=== PATIENT | female | born 1990 | race Caucasian/White ===

== ENCOUNTER 2016-06-15 18:38 | Emergency (ER) | payer OTHER ==
--- NOTE | 2016-06-15 20:57 | ED CLINICAL REPORT ---
Clinical Report - Physicians/Mid Levels [facility] [address] [place] [address] 06/15/2016 18:40 Patient: LISSY LANE Time Seen: 18:45 Apr 2016. Arrived- By private vehicle. HISTORY OF PRESENT ILLNESS Chief Complaint: PELVIC PAIN. Still present. The symptoms are described as mild. The patient has had pelvic pain. No pain with urination, urinary frequency or urgency of urination. (7 weeks IUP G with history of anemia and previous transfusions, reports anemia with labs 2 weeks previously. Reports she has been feeling off and weak over the last few weeks. This has been worsening. History of gastric ulcers, status post gastric [id number]. Denies any melena, has had normal brown stool. Denies hematochezia. Reports some epigastric pain. Reports some shortness of breath with ambulating.). REVIEW OF SYSTEMS No nausea, vomiting, diarrhea, eye discomfort or cough. No chest pain. All systems otherwise negative, except as recorded above. SOCIAL HISTORY Never smoker. No alcohol use or drug use. ADDITIONAL NOTES The nursing notes have been reviewed. PHYSICAL EXAM Vital Signs: 06/15/2016 18:47 BP: 111/76. HR: 77. RR: 18. O2 saturation: 100%. Temp: 98.9 F. Appearance: Alert. No acute distress. (pale). HEENT: Normal external inspection. ENT: Pharynx normal. Neck: Neck supple. CVS: Heart sounds normal. Rate normal. Respiratory: No respiratory distress. Breath sounds normal. Abdomen: Soft and nontender. No mass. No abdominal tenderness. Neuro: Oriented X 3. LABS, X-RAYS, AND EKG EKG: EKG time: (2016). No acute process. No acute ischemia. Normal EKG. Rate: 68. Normal P waves. Normal LISSETT. Normal QRS complex. Normal axis. Prior EKG unavailable. The study has been interpreted contemporaneously. The study has been independently viewed by me. The EKG appears to be a good tracing. Laboratory Tests: CBC w Diff: (GINA: 06/15/2016 19:20) ( MsgRcvd 06/15/2016 19:52) Final results Test Result Flag Units (Reference) WHITE BLOOD COUNT 4.0 L K/uL (4.5-11.5) RED BLOOD COUNT 4.71 M/uL (4.00-5.20) HEMOGLOBIN 10.6 L gm/dL (12.0-16.0) HEMATOCRIT 33.1 L % (36.0-46.0) MEAN CELL VOLUME 70 L fL (80-100) MEAN CORPUSCULAR HGB 23 L pg (26-34) MEAN CORPUSCULAR HGB CONC 32 g/dL (31-37) RED CELL DISTRIBUTION WIDTH 18.5 H % (11.6-14.8) PLATELET COUNT 181 K/uL (150-400) NEUTROPHIL % 36.1 L % (50-75) LYMPH % 41.6 H % (25-40) MONO % 12.8 % (3-14) EOSINOPHIL % 8.9 H % (0-4) BASOPHIL % 0.6 % (0-2) CMP: (GINA: 06/15/2016 19:20) ( MsgRcvd 06/15/2016 20:29) Final results Test Result Flag Units (Reference) GLUCOSE 90 mg/dL (70-110) BUN 9 mg/dL (7-18) CREATININE 0.6 mg/dL (0.6-1.3) Estimated GFR >60 mL/min Estimated GFR- >60 mL/min Note: Persistent reduction over 3 months in eGFR<60 mL/min/1.73 m2 defines CKD. Patients with eGFR values>=60 mL/min/1.73 m2 may also have CKD if evidence ofpersistent proteinuria. Additional information may be foundat www.kidney.org. SODIUM 137 mmol/L (136-145) POTASSIUM 3.5 mmol/L (3.5-5.1) CHLORIDE 106 mmol/L (98-107) CARBON DIOXIDE 24 mmol/L (21-32) CALCIUM 8.1 L mg/dL (8.5-10.1) TOTAL PROTEIN 6.6 g/dL (6.4-8.2) ALBUMIN 3.1 L g/dL (3.3-5.0) BILIRUBIN, TOTAL 0.3 mg/dL (0.0-1.0) ALKALINE PHOSPHATASE 69 U/L (46-116) AST (SGOT) 20 U/L (15-37) ALT (SGPT) 25 U/L (12-78) BETA HCG, QUANTITATIVE 40999 mIU/mL REFERENCE RANGE:Adult Males: <2 mIU/mLNon- Females: <6 mIU/mL Females:Approximate Approximate hCGGestational Age Range (mIU/mL) 0-1 week 0-501-2 weeks 40-3002-3 weeks 100-36811-2 weeks 500-53119-0 months 5,000-200,0002-3 months 10,000-100,0002nd trimester 3,000-50,0003rd trimester 1,000-50,000 Type & Screen: (GINA: 06/15/2016 19:20) ( MsgRcvd 06/15/2016 20:25) IP Test Result Flag Units (Reference) PATIENT BLOOD TYPE B Positive . PROGRESS AND PROCEDURES Course of Care: Here in the ER patient has been stable. No signs of major anemia or requiring transfusion. Hemoccult negative from below, with light brown stool. No signs of active complications. Patient given 2 L IV fluid. [place] to be without any signs of orthostatic hypotension. Unclear source. EKG is benign. Patient feels better in the emergency department. HCG levels appropriate. NO vag bleeding, no loss of fluid. . 06/15/2016 20:48 BP: 96/63. HR: 74. O2 saturation: 100%. 06/15/2016 20:46 BP: 97/60. HR: 68. O2 saturation: 100%. 06/15/2016 20:44 BP: 97/51. HR: 58. O2 saturation: 100%. Patient is stable. Physical exam findings are improved. Symptoms better. Patient/family counseled. Differential Diagnosis: I considered cochlear disease, acoustic schwannoma, brainstem TIA, brainstem CVA, multiple sclerosis, drug-related cause of central vertigo, seizure, near-syncope, multiple sensory deficits, anxiety and psychosis as a possible cause of dizziness in this patient. Disposition: Discharged. Condition: good. CLINICAL IMPRESSION Near syncope Early, first trimester intrauterine . INSTRUCTIONS Drink plenty of fluids. (labs look great today, please follow up with your tin dipper). Warnings: Further evaluation is necessary. OTC Medications: Calcium Carbonate chewable tabs 500 mg (available over the counter): chew and swallow 1 tab every 6 hours. Dispense forty (40). No refill. (for Hypocalcemia (low Calcium levels)) Follow-up: Follow up with your doctor as needed. Understanding of the discharge instructions verbalized by patient. (Electronically signed by Sharmaine Qureshi P.A.-C 06/15/2016 21:08)
--- NOTE | 2016-06-15 20:57 | ED CLINICAL REPORT ---
Clinical Report - Physicians/Mid Levels [facility] [address] [place] [address] 06/15/2016 18:40 Patient: LISSY L[address] Time Seen: 18:45 Apr 2016. Arrived- By private vehicle. HISTORY OF PRESENT ILLNESS Chief Complaint: PELVIC PAIN. Still present. The symptoms are described as mild. The patient has had pelvic pain. No pain with urination, urinary frequency or urgency of urination. (7 weeks IUP G with history of anemia and previous transfusions, reports anemia with labs 2 weeks previously. Reports she has been feeling off and weak over the last few weeks. This has been worsening. History of gastric ulcers, status post gastric Sslt-dz-[id number]. Denies any melena, has had normal brown stool. Denies hematochezia. Reports some epigastric pain. Reports some shortness of breath with ambulating.). REVIEW OF SYSTEMS No nausea, vomiting, diarrhea, eye discomfort or cough. No chest pain. All systems otherwise negative, except as recorded above. SOCIAL HISTORY Never smoker. No alcohol use or drug use. ADDITIONAL NOTES The nursing notes have been reviewed. PHYSICAL EXAM Vital Signs: 06/15/2016 18:47 BP: 111/76. HR: 77. RR: 18. O2 saturation: 100%. Temp: 98.9 F. Appearance: Alert. No acute distress. (pale). HEENT: Normal external inspection. ENT: Pharynx normal. Neck: Neck supple. CVS: Heart sounds normal. Rate normal. Respiratory: No respiratory distress. Breath sounds normal. Abdomen: Soft and nontender. No mass. No abdominal tenderness. Neuro: Oriented X 3. LABS, X-RAYS, AND EKG EKG: EKG time: (2016). No acute process. No acute ischemia. Normal EKG. Rate: 68. Normal P waves. Normal LISSETT. Normal QRS complex. Normal axis. Prior EKG unavailable. The study has been interpreted contemporaneously. The study has been independently viewed by me. The EKG appears to be a good tracing. Laboratory Tests: CBC w Diff: (GINA: 06/15/2016 19:20) ( MsgRcvd 06/15/2016 19:52) Final results Test Result Flag Units (Reference) WHITE BLOOD COUNT 4.0 L K/uL (4.5-11.5) RED BLOOD COUNT 4.71 M/uL (4.00-5.20) HEMOGLOBIN 10.6 L gm/dL (12.0-16.0) HEMATOCRIT 33.1 L % (36.0-46.0) MEAN CELL VOLUME 70 L fL (80-100) MEAN CORPUSCULAR HGB 23 L pg (26-34) MEAN CORPUSCULAR HGB CONC 32 g/dL (31-37) RED CELL DISTRIBUTION WIDTH 18.5 H % (11.6-14.8) PLATELET COUNT 181 K/uL (150-400) NEUTROPHIL % 36.1 L % (50-75) LYMPH % 41.6 H % (25-40) MONO % 12.8 % (3-14) EOSINOPHIL % 8.9 H % (0-4) BASOPHIL % 0.6 % (0-2) CMP: (GINA: 06/15/2016 19:20) ( MsgRcvd 06/15/2016 20:29) Final results Test Result Flag Units (Reference) GLUCOSE 90 mg/dL (70-110) BUN 9 mg/dL (7-18) CREATININE 0.6 mg/dL (0.6-1.3) Estimated GFR >60 mL/min Estimated GFR- >60 mL/min Note: Persistent reduction over 3 months in eGFR<60 mL/min/1.73 m2 defines CKD. Patients with eGFR values>=60 mL/min/1.73 m2 may also have CKD if evidence ofpersistent proteinuria. Additional information may be foundat www.[email or web address].org. SODIUM 137 mmol/L (136-145) POTASSIUM 3.5 mmol/L (3.5-5.1) CHLORIDE 106 mmol/L (98-107) CARBON DIOXIDE 24 mmol/L (21-32) CALCIUM 8.1 L mg/dL (8.5-10.1) TOTAL PROTEIN 6.6 g/dL (6.4-8.2) ALBUMIN 3.1 L g/dL (3.3-5.0) BILIRUBIN, TOTAL 0.3 mg/dL (0.0-1.0) ALKALINE PHOSPHATASE 69 U/L (46-116) AST (SGOT) 20 U/L (15-37) ALT (SGPT) 25 U/L (12-78) BETA HCG, QUANTITATIVE 89120 mIU/mL REFERENCE RANGE:Adult Males: <2 mIU/mLNon- Females: <6 mIU/mL Females:Approximate Approximate hCGGestational Age Range (mIU/mL) 0-1 week 0-501-2 weeks 40-3002-3 weeks 100-83944-8 weeks 500-46758-8 months 5,000-200,0002-3 months 10,000-100,0002nd trimester 3,000-50,0003rd trimester 1,000-50,000 Type & Screen: (GINA: 06/15/2016 19:20) ( MsgRcvd 06/15/2016 20:25) IP Test Result Flag Units (Reference) PATIENT BLOOD TYPE B Positive . PROGRESS AND PROCEDURES Course of Care: Here in the ER patient has been stable. No signs of major anemia or requiring transfusion. Hemoccult negative from below, with light brown stool. No signs of active complications. Patient given 2 L IV fluid. [place] to be without any signs of orthostatic hypotension. Unclear source. EKG is benign. Patient feels better in the emergency department. HCG levels appropriate. NO vag bleeding, no loss of fluid. . 06/15/2016 20:48 BP: 96/63. HR: 74. O2 saturation: 100%. 06/15/2016 20:46 BP: 97/60. HR: 68. O2 saturation: 100%. 06/15/2016 20:44 BP: 97/51. HR: 58. O2 saturation: 100%. Patient is stable. Physical exam findings are improved. Symptoms better. Patient/family counseled. Differential Diagnosis: I considered cochlear disease, acoustic schwannoma, brainstem TIA, brainstem CVA, multiple sclerosis, drug-related cause of central vertigo, seizure, near-syncope, multiple sensory deficits, anxiety and psychosis as a possible cause of dizziness in this patient. Disposition: Discharged. Condition: good. CLINICAL IMPRESSION Near syncope Early, first trimester intrauterine . INSTRUCTIONS Drink plenty of fluids. (labs look great today, please follow up with your graphotype operator). Warnings: Further evaluation is necessary. OTC Medications: Calcium Carbonate chewable tabs 500 mg (available over the counter): chew and swallow 1 tab every 6 hours. Dispense forty (40). No refill. (for Hypocalcemia (low Calcium levels)) Follow-up: Follow up with your doctor as needed. Understanding of the discharge instructions verbalized by patient. (Electronically signed by Sharmaine Qureshi P.A.-C 06/15/2016 21:08)
--- NOTE | 2016-06-15 20:58 | ED ORDER SUMMARY ---
..... Patient: LISSY LANE OrderSheet [facility] VisitID: [id number] [place] [address] 26y, F Registration Date/Time: 06/15/2016 ORDER SHEET Weight: 72.5 kg (stated) Allergies: Hydrocodone GENERAL ORDERS: CBC w Diff Urgent (18:57 06/15/2016 EKoroleva P.A.-C) (Ack 19:00 PWeiler ER Tech1) (19:31 EHassan R.N.) CMP Urgent (18:57 06/15/2016 EKoroleva P.A.-C) (Ack 19:00 PWeiler ER Tech1) (19:31 EHassan R.N.) Type & Screen Urgent (18:57 06/15/2016 EKoroleva P.A.-C) (Ack 19:00 PWeiler ER Tech1) (19:31 EHassan R.N.) Serum Quantitative Urgent (18:57 06/15/2016 EKoroleva P.A.-C) (Ack 19:00 PWeiler ER Tech1) (19:31 EHassan R.N.) Welder Fitter Arc (Continuous) (18:58 06/15/2016 EKoroleva P.A.-C) (19:31 EHassan R.N.) EKG - ER Stat (18:58 06/15/2016 EKoroleva P.A.-C) (Ack 19:00 PWeiler ER Tech1) (19:11 PWeiler ER Tech1) Vitals (20:35 06/15/2016 EKoroleva P.A.-C) (20:59 CHategekimana) MEDICATION ORDERS: IV FLUIDS: IV NS : initial bolus 1000 mL (1000 mL/hr), then 1000 mL/hr for X1 (NOW); Sergio (18:57 06/15/2016 EKoroleva P.A.-C) (19:33 EHassan R.N.) Reglan IV 10 mg (NOW) (18:58 06/15/2016 EKoroleva P.A.-C) (19:33 EHassan R.N.) ORDER SHEET NOTES: [Electronically signed by Sharmaine Qureshi P.A.-C (21:08 06/15/2016)] [Electronically signed by Dunia Loaiza R.N. (11:37 06/16/2016)] [Electronically locked/signed by Dunia Loaiza R.N. (11:37 06/16/2016)]
--- NOTE | 2016-06-15 20:58 | ED NURSING NOTES ---
Clinical Report - Nurses [place] [address] [place] [address] 06/15/2016 18:40 Patient: LISSY LANE TRIAGE Triage time 1850 PM. Acuity: LEVEL 3. Chief Complaint: DIZZINESS and FAINTING. Alert. No acute distress. BETO COMA SCORE: Beto Coma Scale: 15- eyes open spontaneously (4); best verbal response- oriented x 4 (5); best motor response- obeys commands (6). --19:00 Dunia Loaiza R.N. 18:47 06/15/16. BP: 111/76. HR: 77. RR: 18. O2 saturation: 100% on room air. Temp: 98.9 F (oral). --19:00 Dunai Loaiza R.N. 18:47 06/15/16. Pain level now: 0/10. --21:19 Dunia Loaiza R.N. Weight: 72.5 kg stated. Height/Length: 67 inches Per Patient. BMI: 25.1. --18:47 Dunia Loaiza R.N. Medications Plus Iron Oral. --18:52 Dunia Loaiza R.N. Magnesium Aspartate Oral. --18:52 Dunia Loaiza R.N. Sucralfate Oral. --18:53 Dunia Loaiza R.N. B Complete Oral. --18:53 Dunia Loaiza R.N. [place] 3 Oral. --18:53 Dunia Loaiza R.N. Vitamin D Oral. --18:53 Dunia Loaiza R.N. Multiple suplements. --18:53 Dunia Loaiza R.N. Allergies Hydrocodone. --18:51 Dunia Loaiza R.N. Medication/allergy information source: the patient. --19:00 Dunia Loaiza R.N. History Arrived by private vehicle, and accompanied by family. Primary physician (Duyen Méndez). ( Pt states being 7 weeks who is aware of being "extremely anemic as per manufacturing quality manager" has been feeling very dizziness, SOB, specially when I she stands. Denies any vaginal bleeding. Here for further evaluation). Onset. (3 days). She has had weakness and difficulty breathing. No fever, cough or skin rash. Denies muscle aches. Treatment CLERK SECRETARY: None. PAST MEDICAL HX: Immunizations not up to date. SOCIAL HX: Never smoker. History of drug use: marijuana. Recently used drugs days ago. (2). No alcohol use. No infectious disease exposure. ABUSE ASSESSMENT: No report of abuse. SELF HARM ASSESSMENT: A self harm assessment was performed. The patient answered "no" to the question "Do you have thoughts of harming or killing yourself?" and "Have you recently had thoughts about harming or killing others?". FALL RISK ASSESSMENT: Fall risk assessment completed. No fall risk identified. NUTRITIONAL RISK ASSESSMENT: The nutritional risk assessment revealed no deficiencies. FUNCTIONAL ASSESSMENT: Functional assessment: no impairments noted. LEARNING NEEDS ASSESSMENT: The learning needs assessment revealed no barriers. SKIN INTEGRITY ASSESSMENT: Skin integrity risk assessment completed. No skin integrity risk identified. --19:00 Dunia Loaiza R.N. 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 Ulcers. Asthma. Pancreatitis. --18:56 Dunia Loaiza R.N. Migranes. --18:59 Dunia Loaiza R.N. ADDITIONAL SURGERIES: Cholecystectomy. Gastric bypass. Tonsillectomy & Adenoidectomy. --18:56 Dunia Loaiza R.N. Interventions ID band on patient. --19:00 Dunia Loaiza R.N. PHYSICAL ASSESSMENT Ambulatory to room. GENERAL / NEURO / PSYCH: Alert. Oriented X 4. HEENT: Pupils equal, round and reactive to light. Mucous membranes are pink. RESPIRATORY: Respirations not labored. Chest nontender. Breath sounds within normal limits. CVS: Capillary refill less than 2 seconds. Pulses within normal limits. GI / : Abdomen soft and nontender and normal bowel sounds. SKIN: Skin intact. Skin is warm and dry. Normal skin turgor. --19:00 Dunia Loaiza R.N. NURSING PROGRESS NOTES The initial plan of care for this patient has been created This plan of care was discussed with the patient. Monitoring of patient in place. Patient gowned. Warming measures: blanket applied. Reassurance given. Two patient identifiers checked. Call light placed in reach. Side rails up x 1. Bed placed in lowest position. Brakes of bed on. Patient ready for evaluation- ED physician and PA notified. --19:00 Dunia Loaiza R.N. EKG time: (1909). EKG was ordered, performed by a patricia and shown to the PA. --19:11 Trent Bowling, EM Tech1 19:28 06/15/2016 Site #1 started via IV in the right antecubital space with an 20g angiocath. Blood drawn: rainbow set. Labeled in the presence of the patient and sent to the lab. --:33 Dunia Loaiza R.N. :06/15/2016 Started bag #1 999 mL IV Fluids IV NS (Saline); at 1000 mL/hr over 1 hour(s) via site #1 via dial-a-flow. Allergies verified and confirmed 5 rights. IV patency established. IV site checked: no pain, redness, or swelling. IV flushed thoroughly pre- and post-medication administration. --:33 Dunia Loaiza R.N. 19:33 06/15/2016 Reglan (Metoclopramide HCl) IVP 10 mg given over 2 minute(s) via site #1. Allergies verified and confirmed 5 rights. IV patency established. IV site checked: no pain, redness, or swelling. IV flushed thoroughly pre- and post-medication administration. IVP given by RN. --19:33 Dunia Loaiza R.N. Cardiac rhythm: normal sinus rhythm. quality assurance monitor final, pulse oximeter and NIBP monitor placed on patient. Reassurance given. Reassessment after fluids administered. She is calm and resting quietly. CVS: Normal sinus rhythm noted. SKIN: Skin is warm. Call light placed in reach. --19:44 Dunia Loaiza R.N. 19:30 06/15/16. BP: 98/59 (regular adult cuff) taken on the left arm, via an automated monitor, while lying. HR: 68. RR: 14. O2 saturation: 96%. Pain level now: 0/10. --19:44 Dunia Loaiza R.N. 20:29 06/15/2016 Reglan IVP Response: no adverse reaction. --20:39 Dunia Loaiza R.N. 20:44 06/15/16. BP: 97/51 (regular adult cuff) taken on the right arm, while lying. HR: 58. O2 saturation: 100% on room air. Additional comments: orthostatic . --20:46 Brittany Quevedo 20:46 06/15/16. BP: 97/60 (regular adult cuff) taken on the right arm, while sitting. HR: 68. O2 saturation: 100% on room air. --20:51 Brittany Quevedo 20:48 06/15/16. BP: 96/63 (regular adult cuff) taken on the right arm, while standing. HR: 74. O2 saturation: 100% on room air. Additional comments: orthostatics . --20:52 Brittany Quevedo. DISPOSITION / DISCHARGE 21:06/15/2016 IV Fluids IV NS Discontinued: bag #1 infused upon discharge. Total amount infused: 1000 mL. IV patency established. IV site checked: no pain, redness, or swelling. IV flushed thoroughly. --21:16 Dunia Loaiza R.N. 21:16 06/15/2016 Site #1 removed upon discharge. Catheter intact. Manual pressure, pressure dressing, bandaid and bandage applied. --21:16 Dunia Loaiza R.N. Cardiac rhythm: normal sinus rhythm. Departure time: 2118 PM. Condition at departure: improved and stable. The goals identified in the patient's plan of care were met. No learning barriers present. Discharge instructions provided and reviewed with the patient. Reviewed medication(s) side effects, precautions, dosing and course information. Prescription(s) given to the patient. Activity restrictions (rest) reviewed. Patient verbalized understanding. Written instructions provided in Wolof. No warning instructions. The patient was discharged by the physician recruitment and outreach assistant. She was discharged home and accompanied by spouse. She left the Emergency Department ambulatory and via private vehicle. Spouse driving. FALL RISK ASSESSMENT: Fall risk assessment completed. No fall risk identified. --21:18 Dunia Loaiza R.N. 21:00 06/15/16. BP: 96/55. HR: 68. RR: 14. O2 saturation: 100% on room air. Temp: 98.3 F (oral). Pain level now: 0/10. --21:18 Dunia Loaiza R.N. Locked/Released at 06/16/2016 11:37 by Dunia Loaiza R.N.
--- NOTE | 2016-06-15 20:58 | ED NURSING NOTES ---
Clinical Report - Nurses [place] [place] [address] [place] [address] 06/15/2016 18:40 Patient: [address]IS[address] L[address] TRIAGE Triage time 1850 PM. Acuity: LEVEL 3. Chief Complaint: DIZZINESS and FAINTING. Alert. No acute distress. BETO COMA SCORE: Beto Coma Scale: 15- eyes open spontaneously (4); best verbal response- oriented x 4 (5); best motor response- obeys commands (6). --19:00 Dunia Loaiza R.N. 18:47 06/15/16. BP: 111/76. HR: 77. RR: 18. O2 saturation: 100% on room air. Temp: 98.9 F (oral). --19:00 Dunia Loaiza R.N. 18:47 06/15/16. Pain level now: 0/10. --21:19 Dunia Loaiza R.N. Weight: 72.5 kg stated. Height/Length: 67 inches Per Patient. BMI: 25.1. --18:47 Dunia Loaiza R.N. Medications Plus Iron Oral. --18:52 Dunia Loaiza R.N. Magnesium Aspartate Oral. --18:52 Dunia Loaiza R.N. Sucralfate Oral. --18:53 Dunia Loaiza R.N. B Complete Oral. --18:53 Dunia Loaiza R.N. [place] 3 Oral. --18:53 Dunia Loaiza R.N. Vitamin D Oral. --18:53 Dunia Loaiza R.N. Multiple suplements. --18:53 Dunia Loaiza R.N. Allergies Hydrocodone. --18:51 Dunia Loaiza R.N. Medication/allergy information source: the patient. --19:00 Dunia Loaiza R.N. History Arrived by private vehicle, and accompanied by family. Primary physician (Duyen Méndez). ( Pt states being 7 weeks who is aware of being "extremely anemic as per photographic reproduction technician" has been feeling very dizziness, SOB, specially when I she stands. Denies any vaginal bleeding. Here for further evaluation). Onset. (3 days). She has had weakness and difficulty breathing. No fever, cough or skin rash. Denies muscle aches. 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 PAST MEDICAL HX: Immunizations not up to date. SOCIAL HX: Never smoker. History of drug use: marijuana. Recently used drugs days ago. (2). No alcohol use. No infectious disease exposure. ABUSE ASSESSMENT: No report of abuse. SELF HARM ASSESSMENT: A self harm assessment was performed. The patient answered "no" to the question "Do you have thoughts of harming or killing yourself?" and "Have you recently had thoughts about harming or killing others?". FALL RISK ASSESSMENT: Fall risk assessment completed. No fall risk identified. NUTRITIONAL RISK ASSESSMENT: The nutritional risk assessment revealed no deficiencies. FUNCTIONAL ASSESSMENT: Functional assessment: no impairments noted. LEARNING NEEDS ASSESSMENT: The learning needs assessment revealed no barriers. SKIN INTEGRITY ASSESSMENT: Skin integrity risk assessment completed. No skin integrity risk identified. --19:00 Dunia Loaiza R.N. 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 Ulcers. Asthma. Pancreatitis. --18:56 Dunia Loaiza R.N. Migranes. --18:59 Dunia Loaiza R.N. ADDITIONAL SURGERIES: Cholecystectomy. Gastric bypass. Tonsillectomy & Adenoidectomy. --18:56 Dunia Loaiza R.N. Interventions ID band on patient. --19:00 Dunia Loaiza R.N. PHYSICAL ASSESSMENT Ambulatory to room. GENERAL / NEURO / PSYCH: Alert. Oriented X 4. HEENT: Pupils equal, round and reactive to light. Mucous membranes are pink. RESPIRATORY: Respirations not labored. Chest nontender. Breath sounds within normal limits. CVS: Capillary refill less than 2 seconds. Pulses within normal limits. GI / : Abdomen soft and nontender and normal bowel sounds. SKIN: Skin intact. Skin is warm and dry. Normal skin turgor. --19:00 Dunia Loaiza R.N. NURSING PROGRESS NOTES The initial plan of care for this patient has been created This plan of care was discussed with the patient. Monitoring of patient in place. Patient gowned. Warming measures: blanket applied. Reassurance given. Two patient identifiers checked. Call light placed in reach. Side rails up x 1. Bed placed in lowest position. Brakes of bed on. Patient ready for evaluation- ED physician and PA notified. --19:00 Dunia Loaiza R.N. EKG time: (1909). EKG was ordered, performed by a patricia and shown to the PA. --19:11 Trent Bowling, EM Tech1 19:28 06/15/2016 Site #1 started via IV in the right antecubital space with an 20g angiocath. Blood drawn: rainbow set. Labeled in the presence of the patient and sent to the lab. --:33 Dunia Loaiza R.N. :06/15/2016 Started bag #1 999 mL IV Fluids IV NS (Saline); at 1000 mL/hr over 1 hour(s) via site #1 via dial-a-flow. Allergies verified and confirmed 5 rights. IV patency established. IV site checked: no pain, redness, or swelling. IV flushed thoroughly pre- and post-medication administration. --:33 Dunia Loaiza R.N. 19:33 06/15/2016 Reglan (Metoclopramide HCl) IVP 10 mg given over 2 minute(s) via site #1. Allergies verified and confirmed 5 rights. IV patency established. IV site checked: no pain, redness, or swelling. IV flushed thoroughly pre- and post-medication administration. IVP given by RN. --19:33 Dunia Loaiza R.N. Cardiac rhythm: normal sinus rhythm. fine arts chair, pulse oximeter and NIBP monitor placed on patient. Reassurance given. Reassessment after fluids administered. She is calm and resting quietly. CVS: Normal sinus rhythm noted. SKIN: Skin is warm. Call light placed in reach. --19:44 Dunia Loaiza R.N. 19:30 06/15/16. BP: 98/59 (regular adult cuff) taken on the left arm, via an automated monitor, while lying. HR: 68. RR: 14. O2 saturation: 96%. Pain level now: 0/10. --19:44 Dunia Loaiza R.N. 20:29 06/15/2016 Reglan IVP Response: no adverse reaction. --20:39 Dunia Loaiza R.N. 20:44 06/15/16. BP: 97/51 (regular adult cuff) taken on the right arm, while lying. HR: 58. O2 saturation: 100% on room air. Additional comments: orthostatic . --20:46 Brittany Quevedo 20:46 06/15/16. BP: 97/60 (regular adult cuff) taken on the right arm, while sitting. HR: 68. O2 saturation: 100% on room air. --20:51 Brittany Quevedo 20:48 06/15/16. BP: 96/63 (regular adult cuff) taken on the right arm, while standing. HR: 74. O2 saturation: 100% on room air. Additional comments: orthostatics . --20:52 Brittany Quevedo. DISPOSITION / DISCHARGE 21:06/15/2016 IV Fluids IV NS Discontinued: bag #1 infused upon discharge. Total amount infused: 1000 mL. IV patency established. IV site checked: no pain, redness, or swelling. IV flushed thoroughly. --21:16 Dunia Loaiza R.N. 21:16 06/15/2016 Site #1 removed upon discharge. Catheter intact. Manual pressure, pressure dressing, bandaid and bandage applied. --21:16 Dunia Loaiza R.N. Cardiac rhythm: normal sinus rhythm. Departure time: 2118 PM. Condition at departure: improved and stable. The goals identified in the patient's plan of care were met. No learning barriers present. Discharge instructions provided and reviewed with the patient. Reviewed medication(s) side effects, precautions, dosing and course information. Prescription(s) given to the patient. Activity restrictions (rest) reviewed. Patient verbalized understanding. Written instructions provided in Khmer. No warning instructions. The patient was discharged by the physician service assistant. She was discharged home and accompanied by spouse. She left the Emergency Department ambulatory and via private vehicle. Spouse driving. FALL RISK ASSESSMENT: Fall risk assessment completed. No fall risk identified. --21:18 Dunia Loaiza R.N. 21:00 06/15/16. BP: 96/55. HR: 68. RR: 14. O2 saturation: 100% on room air. Temp: 98.3 F (oral). Pain level now: 0/10. --21:18 Dunia Loaiza R.N. Locked/Released at 06/16/2016 11:37 by Dunia Loaiza R.N.
--- NOTE | 2016-06-15 20:58 | ED ORDER SUMMARY ---
..... Patient: [address]IS[address] L[address] OrderSheet [facility] VisitID: [id number] [place] [address] 26y, F Registration Date/Time: 06/15/2016 ORDER SHEET Weight: 72.5 kg (stated) Allergies: Hydrocodone GENERAL ORDERS: CBC w Diff Urgent (18:57 06/15/2016 EKoroleva P.A.-C) (Ack 19:00 PWeiler ER Tech1) (19:31 EHassan R.N.) CMP Urgent (18:57 06/15/2016 EKoroleva P.A.-C) (Ack 19:00 PWeiler ER Tech1) (19:31 EHassan R.N.) Type & Screen Urgent (18:57 06/15/2016 EKoroleva P.A.-C) (Ack 19:00 PWeiler ER Tech1) (19:31 EHassan R.N.) Serum Quantitative Urgent (18:57 06/15/2016 EKoroleva P.A.-C) (Ack 19:00 PWeiler ER Tech1) (19:31 EHassan R.N.) Roofing Contractor (Continuous) (18:58 06/15/2016 EKoroleva P.A.-C) (19:31 EHassan R.N.) EKG - ER Stat (18:58 06/15/2016 EKoroleva P.A.-C) (Ack 19:00 PWeiler ER Tech1) (19:11 PWeiler ER Tech1) Vitals (20:35 06/15/2016 EKoroleva P.A.-C) (20:59 CHategekimana) MEDICATION ORDERS: IV FLUIDS: IV NS : initial bolus 1000 mL (1000 mL/hr), then 1000 mL/hr for X1 (NOW); Sergio (18:57 06/15/2016 EKoroleva P.A.-C) (19:33 EHassan R.N.) Reglan IV 10 mg (NOW) (18:58 06/15/2016 EKoroleva P.A.-C) (19:33 EHassan R.N.) ORDER SHEET NOTES: [Electronically signed by Sharmaine Qureshi P.A.-C (21:08 06/15/2016)] [Electronically signed by Dunia Loaiza R.N. (11:37 06/16/2016)] [Electronically locked/signed by Dunia Loaiza R.N. (11:37 06/16/2016)]
--- NOTE | 2016-06-16 11:37 | ED DISCHARGE INSTRUCTIONS ---
Patient: [address]IS[address] General Instructions [facility] VisitID: [id number] [place] [address] 26y, F Registration Date/Time: 06/15/2016 Near syncope Early, first trimester intrauterine . INSTRUCTIONS Drink plenty of fluids. (labs look great today, please follow up with your rn women services). Warnings: Further evaluation is necessary. OTC Medications: Calcium Carbonate chewable tabs 500 mg (available over the counter): chew and swallow 1 tab every 6 hours. Dispense forty (40). No refill. (for Hypocalcemia (low Calcium levels)) Follow-up: Follow up with your doctor as needed. Understanding of the discharge instructions verbalized by patient. ADDITIONAL INFORMATION Near-Fainting:Uncertain Cause Fainting (syncope) is a temporary loss of consciousness ("passing out"). It occurs when blood flow to the brain is reduced. Near-fainting ("near-syncope") is like fainting, but you do not fully "pass out." The common minor causes of near fainting include sudden fear, pain, emotional stress, overexertion, or quickly standing up after sitting or lying for a long time. The more serious causes for near fainting are due to either a very slow or very fast heart beat, dehydration, anemia, blood loss, problems related to the heart, or taking too much high blood pressure medicine. The exact cause of your episode is not certain. More tests may be required. Therefore, it is important that you follow up with your doctor as advised. Home Care: 1) Rest today. Resume your normal activities as soon as you are feeling back to normal. 2) If you become light-headed or dizzy, lie down right away or sit with your head between your knees. 3) Because we do not know the exact cause of your near fainting spell, another spell could occur without warning. Therefore, do not drive a car or use dangerous equipment. D o not take a bath alone (use a shower instead). Do not swim alone. You can resume these activities when your doctor says that you are no longer in danger of having a near fainting spell. 4) Stay well hydrated by drinking enough fluid each day. Follow Up with your doctor as instructed. Get Prompt Medical Attention if any of the following occur: -- Another fainting spell occurs, and it is not explained by the common causes listed above -- Chest, arm, neck, jaw, back or abdominal pain -- Shortness of breath -- Weakness, tingling or numbness in one side of the face, one arm or leg -- Slurred speech, confusion, trouble walking or seeing -- Seizure -- Blood in vomit, stools (black or red color) -- (In women) unexpected vaginal bleeding Your exam today shows that you are . During , it is normal to develop tender swollen breasts, frequent urination and mild vaginal discharge. During the first three months, nausea is common. Guidelines For A Healthy : To ensure that your baby is born healthy there are certain things that you can do: When you feel tired, you should REST. This is especially true in the later months of . Your body needs more FLUIDS than you may be used to: You should drink 8-10 glasses of juice, milk or water. Eat well-balanced MEALS at regular intervals to supply your body with enough protein. You can expect a total weight gain of about 30 pounds during the . Do not try to diet or lose weight while you are . Because of the extra nutritional needs during , take one VITAMIN daily. Do not take any other MEDICINE during your (prescribed or [id number]) unless your doctor specifically recommends this. Many drugs can have harmful effects on the growing baby. If NAUSEA or VOMITING become a problem, avoid greasy and fried foods. Eat several smaller meals throughout the day rather than three large meals. If you SMOKE, you must stop. The nicotine you breathe in goes right to the baby. Stay away from ALCOHOL, even in moderate amounts. Daily drinking will harm your baby and can cause permanent brain damage. RECREATIONAL DRUGS are harmful, especially cocaine, crack, and heroin. Marijuana should also be avoided. If you were using recreational drugs or prescribed medicine when you found out that you were , talk to your doctor about possible effects on the fetus. Follow Up: Call to arrange for care. This can be provided by your family doctor, an outreach consultant ( specialist) or a primary care clinic. Get Prompt Medical Attention if any of the following occur: Vaginal bleeding Moderate or severe abdominal or back pain Excessive vomiting, unable to keep any fluids down for six hours Burning with urination Headache, dizziness or rapid weight gain Calcium Carbonate Oral tablet What is this medicine? CALCIUM CARBONATE (RUDI see um ANNA jerez ate) is a calcium salt. It is used as an antacid to relieve the symptoms of indigestion and heartburn. It is also used to prevent osteoporosis, as a calcium supplement, and to treat high phosphate levels in patients with kidney disease. How should I use this medicine? Take this medicine by mouth with a glass of water. Follow the directions on the label. Antacids are usually taken after meals and at bedtime, or as directed by your doctor or health vocational childcare teacher. Take your medicine at regular intervals. Do not take your medicine more often than directed. Talk to your physician assistant psychiatry regarding the use of this medicine in children. While this medicine may be used in children for selected conditions, precautions do apply. What side effects may I notice from receiving this medicine? Side effects that you should report to your doctor or health vocational childcare teacher as soon as possible: allergic reactions like skin rash, itching or hives, swelling of the face, lips, or tongue confusion or irritability headache loss of appetite nausea, vomiting unusually weak or tired Side effects that usually do not require medical attention (report to your doctor or health vocational childcare teacher if they continue or are bothersome): constipation stomach gas What may interact with this medicine? Do not take this medicine with any of the following medications: ammonium chloride methenamine This medicine may also interact with the following medications: antibiotics like ciprofloxacin, tetracycline captopril delavirdine gabapentin iron supplements medicines for fungal infections like ketoconazole and itraconazole medicines for seizures like ethotoin and phenytoin mycophenolate quinidine rosuvastatin sucralfate thyroid medicine What if I miss a dose? If you miss a dose, take it as soon as you can. If it is almost time for your next dose, take only that dose. Do not take double or extra doses. Where should I keep my medicine? Keep out of the reach of children. Store at room temperature between 15 and 30 degrees C (59 and 86 degrees F). Throw away any unused medicine after the expiration date. What should I tell my health care provider before I take this medicine? They need to know if you have any of these conditions: constipation dehydration high blood calcium levels kidney disease stomach bleeding, obstruction or ulcer an unusual or allergic reaction to calcium carbonate, other medicines, foods, dyes, or preservatives or trying to get breast-feeding What should I watch for while using this medicine? Tell your doctor or healthcare professional if your symptoms do not start to get better or if they get worse. Do not treat yourself for stomach problems with this medicine for more than 2 weeks. See a doctor if you have black tarry stools, rectal bleeding, or if you feel unusually tired. Do not change to another antacid product without advice. If you are taking other medicines, leave an interval of at least 2 hours before or after taking this medicine. To help reduce constipation, drink several glasses of water a day. You have been given the following additional information: Near Syncope, Unknown , New Dx Calcium Carbonate Oral tablet (Electronically signed by Sharmaine Qureshi P.A.-C 06/15/2016 21:08)
--- NOTE | 2016-06-16 11:37 | ED DISCHARGE INSTRUCTIONS ---
Patient: LISSY LANE General Instructions [facility] VisitID: [id number] [place] [address] 26y, F Registration Date/Time: 06/15/2016 Near syncope Early, first trimester intrauterine . INSTRUCTIONS Drink plenty of fluids. (labs look great today, please follow up with your senior safety support manager). Warnings: Further evaluation is necessary. OTC Medications: Calcium Carbonate chewable tabs 500 mg (available over the counter): chew and swallow 1 tab every 6 hours. Dispense forty (40). No refill. (for Hypocalcemia (low Calcium levels)) Follow-up: Follow up with your doctor as needed. Understanding of the discharge instructions verbalized by patient. ADDITIONAL INFORMATION Near-Fainting:Uncertain Cause Fainting (syncope) is a temporary loss of consciousness ("passing out"). It occurs when blood flow to the brain is reduced. Near-fainting ("near-syncope") is like fainting, but you do not fully "pass out." The common minor causes of near fainting include sudden fear, pain, emotional stress, overexertion, or quickly standing up after sitting or lying for a long time. The more serious causes for near fainting are due to either a very slow or very fast heart beat, dehydration, anemia, blood loss, problems related to the heart, or taking too much high blood pressure medicine. The exact cause of your episode is not certain. More tests may be required. Therefore, it is important that you follow up with your doctor as advised. Home Care: 1) Rest today. Resume your normal activities as soon as you are feeling back to normal. 2) If you become light-headed or dizzy, lie down right away or sit with your head between your knees. 3) Because we do not know the exact cause of your near fainting spell, another spell could occur without warning. Therefore, do not drive a car or use dangerous equipment. D o not take a bath alone (use a shower instead). Do not swim alone. You can resume these activities when your doctor says that you are no longer in danger of having a near fainting spell. 4) Stay well hydrated by drinking enough fluid each day. Follow Up with your doctor as instructed. Get Prompt Medical Attention if any of the following occur: -- Another fainting spell occurs, and it is not explained by the common causes listed above -- Chest, arm, neck, jaw, back or abdominal pain -- Shortness of breath -- Weakness, tingling or numbness in one side of the face, one arm or leg -- Slurred speech, confusion, trouble walking or seeing -- Seizure -- Blood in vomit, stools (black or red color) -- (In women) unexpected vaginal bleeding Your exam today shows that you are . During , it is normal to develop tender swollen breasts, frequent urination and mild vaginal discharge. During the first three months, nausea is common. Guidelines For A Healthy : To ensure that your baby is born healthy there are certain things that you can do: When you feel tired, you should REST. This is especially true in the later months of . Your body needs more FLUIDS than you may be used to: You should drink 8-10 glasses of juice, milk or water. Eat well-balanced MEALS at regular intervals to supply your body with enough protein. You can expect a total weight gain of about 30 pounds during the . Do not try to diet or lose weight while you are . Because of the extra nutritional needs during , take one VITAMIN daily. Do not take any other MEDICINE during your (prescribed or [id number]) unless your doctor specifically recommends this. Many drugs can have harmful effects on the growing baby. If NAUSEA or VOMITING become a problem, avoid greasy and fried foods. Eat several smaller meals throughout the day rather than three large meals. If you SMOKE, you must stop. The nicotine you breathe in goes right to the baby. Stay away from ALCOHOL, even in moderate amounts. Daily drinking will harm your baby and can cause permanent brain damage. RECREATIONAL DRUGS are harmful, especially cocaine, crack, and heroin. Marijuana should also be avoided. If you were using recreational drugs or prescribed medicine when you found out that you were , talk to your doctor about possible effects on the fetus. Follow Up: Call to arrange for care. This can be provided by your family doctor, an automotive parts coordinator ( specialist) or a primary care clinic. Get Prompt Medical Attention if any of the following occur: Vaginal bleeding Moderate or severe abdominal or back pain Excessive vomiting, unable to keep any fluids down for six hours Burning with urination Headache, dizziness or rapid weight gain Calcium Carbonate Oral tablet What is this medicine? CALCIUM CARBONATE (RUDI see um ANNA jerez ate) is a calcium salt. It is used as an antacid to relieve the symptoms of indigestion and heartburn. It is also used to prevent osteoporosis, as a calcium supplement, and to treat high phosphate levels in patients with kidney disease. How should I use this medicine? Take this medicine by mouth with a glass of water. Follow the directions on the label. Antacids are usually taken after meals and at bedtime, or as directed by your doctor or health client care manager. Take your medicine at regular intervals. Do not take your medicine more often than directed. Talk to your dog food dough mixer regarding the use of this medicine in children. While this medicine may be used in children for selected conditions, precautions do apply. What side effects may I notice from receiving this medicine? Side effects that you should report to your doctor or health client care manager as soon as possible: allergic reactions like skin rash, itching or hives, swelling of the face, lips, or tongue confusion or irritability headache loss of appetite nausea, vomiting unusually weak or tired Side effects that usually do not require medical attention (report to your doctor or health client care manager if they continue or are bothersome): constipation stomach gas What may interact with this medicine? Do not take this medicine with any of the following medications: ammonium chloride methenamine This medicine may also interact with the following medications: antibiotics like ciprofloxacin, tetracycline captopril delavirdine gabapentin iron supplements medicines for fungal infections like ketoconazole and itraconazole medicines for seizures like ethotoin and phenytoin mycophenolate quinidine rosuvastatin sucralfate thyroid medicine What if I miss a dose? If you miss a dose, take it as soon as you can. If it is almost time for your next dose, take only that dose. Do not take double or extra doses. Where should I keep my medicine? Keep out of the reach of children. Store at room temperature between 15 and 30 degrees C (59 and 86 degrees F). Throw away any unused medicine after the expiration date. What should I tell my health care provider before I take this medicine? They need to know if you have any of these conditions: constipation dehydration high blood calcium levels kidney disease stomach bleeding, obstruction or ulcer an unusual or allergic reaction to calcium carbonate, other medicines, foods, dyes, or preservatives or trying to get breast-feeding What should I watch for while using this medicine? Tell your doctor or healthcare professional if your symptoms do not start to get better or if they get worse. Do not treat yourself for stomach problems with this medicine for more than 2 weeks. See a doctor if you have black tarry stools, rectal bleeding, or if you feel unusually tired. Do not change to another antacid product without advice. If you are taking other medicines, leave an interval of at least 2 hours before or after taking this medicine. To help reduce constipation, drink several glasses of water a day. You have been given the following additional information: Near Syncope, Unknown , New Dx Calcium Carbonate Oral tablet (Electronically signed by Sharmaine Qureshi P.A.-C 06/15/2016 21:08)
--- NOTE | 2016-06-16 11:37 | ED MAR SUMMARY ---
..... Medication Administration Record [facility] [address] [place] [address] Patient: LISSY LANE Visit ID: [id number] 26y, F Weight: 72.5 kg Height/Length: 67 in BMI: 25.1 ALLERGIES: Hydrocodone Start 19:28 06/15/2016 Dunia Loaiza R.N., Stop 21:01 06/15/2016 Dunia Loaiza R.N. Medication Administered: IV NS (SALINE), Dose: IV Fluids over 1 hour(s), Rate: 1000 mL/hr, Dispensed: 999 mL bag, Site: #1 right AC. Medication Ordered: IV NS : initial bolus 1000 mL (1000 mL/hr), then 1000 mL/hr for X1 (NOW); Sergio. Given 19:33 06/15/2016 Dunia Loaiza RMaria InesNMaria Ines Medication Administered: REGLAN [IVP] (METOCLOPRAMIDE HCL), Dose: 10 mg IVP over 2 minute(s), Site: #1 right AC. Medication Ordered: Reglan IV 10 mg (NOW).
--- NOTE | 2016-06-16 11:37 | ED MED RECONCILIATION SUMMARY ---
Patient: LISSY LANE Medication Reconciliation Report [facility] VisitID: [id number] [address] [place] [address] 26y, F Registration Date/Time: 06/15/2016 Weight: 72.5 kg Height/Length: 67 in. BMI: 25.1 ALLERGIES: Hydrocodone The patient's Home Medications are listed below: THE FOLLOWING MEDICATIONS NEED TO BE RECONCILED: B Complete Oral Magnesium Aspartate Oral Multiple suplements [place] 3 Oral Plus Iron Oral Sucralfate Oral Vitamin D Oral The source(s) of the original Home Medication information: patient The following Medications were given to the patient in the Emergency Department: IV NS IV Fluids bolus 0, then 1000 mL/hr, administered: 06/15/2016 7:28:00 PM Reglan [IVP] IVP 10 mg, administered: 06/15/2016 7:33:00 PM The following Medications were prescribed to the patient: Calcium Carbonate chewable tabs 500 mg (available over the counter): chew and swallow 1 tab every 6 hours. Dispense forty (40). No refill.(for Hypocalcemia (low Calcium levels)) -- Sharmaine Qureshi P.A.-C
--- NOTE | 2016-06-16 11:37 | ED MED RECONCILIATION SUMMARY ---
Patient: LISSY LANE Medication Reconciliation Report [facility] VisitID: [id number] [address] [place] [address] 26y, F Registration Date/Time: 06/15/2016 Weight: 72.5 kg Height/Length: 67 in. BMI: 25.1 ALLERGIES: Hydrocodone The patient's Home Medications are listed below: THE FOLLOWING MEDICATIONS NEED TO BE RECONCILED: B Complete Oral Magnesium Aspartate Oral Multiple suplements [place] 3 Oral Plus Iron Oral Sucralfate Oral Vitamin D Oral The source(s) of the original Home Medication information: patient The following Medications were given to the patient in the Emergency Department: IV NS IV Fluids bolus 0, then 1000 mL/hr, administered: 06/15/2016 7:28:00 PM Reglan [IVP] IVP 10 mg, administered: 06/15/2016 7:33:00 PM The following Medications were prescribed to the patient: Calcium Carbonate chewable tabs 500 mg (available over the counter): chew and swallow 1 tab every 6 hours. Dispense forty (40). No refill.(for Hypocalcemia (low Calcium levels)) -- Sharmaine Qureshi P.A.-C
--- NOTE | 2016-06-16 11:37 | ED MAR SUMMARY ---
..... Medication Administration Record [facility] [address] [place] [address] Patient: L[address]SY L[address] Visit ID: [id number] 26y, F Weight: 72.5 kg Height/Length: 67 in BMI: 25.1 ALLERGIES: Hydrocodone Start 19:28 06/15/2016 Dunia Loaiza R.N., Stop 21:01 06/15/2016 Dunia Loaiza R.N. Medication Administered: IV NS (SALINE), Dose: IV Fluids over 1 hour(s), Rate: 1000 mL/hr, Dispensed: 999 mL bag, Site: #1 right AC. Medication Ordered: IV NS : initial bolus 1000 mL (1000 mL/hr), then 1000 mL/hr for X1 (NOW); Sergio. Given 19:33 06/15/2016 Dunia Loaiza RMaria InesNMaria Ines Medication Administered: REGLAN [IVP] (METOCLOPRAMIDE HCL), Dose: 10 mg IVP over 2 minute(s), Site: #1 right AC. Medication Ordered: Reglan IV 10 mg (NOW).
== END 2016-06-15 21:21 | disposition home or self-care (01) ==
LOC: ED SRH 18:38
DX: R55 Syncope and collapse (principal); Z33.1 Pregnant state, incidental; Z3A.01 Less than 8 weeks gestation of pregnancy
CPT/HCPCS: 90001; 90100; 90155; 90197; 91004; 95059